=== PATIENT | female | born 1985 | race Caucasian/White ===

== ENCOUNTER → 2024-01-01 14:43 | Outpatient (REF) | payer BC, SELFPAY | LOC: WDC 14:43 | PROVIDERS: ATTENDING PHYSICIAN Physician Assistant Medical | DX: Z12.31 Encounter for screening mammogram for malignant neoplasm of breast (principal) | CPT/HCPCS: 77063; 77067 ==

== ENCOUNTER → 2024-03-29 12:46 | Outpatient (REF) | payer BC, SELFPAY | LOC: HWRAD 12:46 | PROVIDERS: ATTENDING PHYSICIAN Physician Assistant Medical | DX: R10.2 Pelvic and perineal pain (principal) | CPT/HCPCS: 76830; 76856 ==

== ENCOUNTER → 2024-07-03 14:23 | Outpatient (REF) | payer BC, SELFPAY | LOC: RCS 14:23 | PROVIDERS: ATTENDING PHYSICIAN Internal Medicine Cardiovascular Disease; FAMILY PHYSICIAN Physician Assistant Medical | DX: R07.9 Chest pain, unspecified (principal) | CPT/HCPCS: 93017; 93350 ==

== ENCOUNTER → 2025-01-02 07:58 | Outpatient (REF) | payer BC, SELFPAY | LOC: WDC 07:58 | PROVIDERS: ATTENDING PHYSICIAN Physician Assistant Medical | DX: Z12.31 Encounter for screening mammogram for malignant neoplasm of breast (principal) | CPT/HCPCS: 77063; 77067 ==